=== PATIENT | male | born 1985 | race African-American/Black ===

== ENCOUNTER 2020-09-08 14:41 | Emergency (ER) | payer OTHER ==
[~2020-09-08] VITALS: Ht 165.1 cm; Wt 70.3 kg
[2020-09-08 15:22] VITALS: BP 135/77
--- NOTE | 2020-09-09 12:06 | EKG ---
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 09/09/20 1206 1445 1445 Rajan Leonard MD, [facility] /EPI
== END 2020-09-08 15:24 | disposition home or self-care (01) ==
LOC: M.ERS 14:41
DX: R07.89 Other chest pain (principal); R06.02 Shortness of breath; J45.909 Unspecified asthma, uncomplicated